=== PATIENT | male | born 1965 | race Caucasian/White ===

== ENCOUNTER 2016-03-16 23:29 | Emergency (ER) | payer OTHER ==
[~2016-03-16] VITALS: Ht 185.4 cm; Wt 130.0 kg
[2016-03-17 00:33] LABS: ADD MIUA? YES; BILIRUBIN NEGATIVE; BLOOD SMALL; COLOR YELLOW ((YELLOW)); GLUCOSE (STRIP) NEGATIVE; KETONES NEGATIVE; LEUKOCYTES NEGATIVE; NITRITE NEGATIVE; PH, URINE 6.5 (5-8); PROTEIN (STRIP) NEGATIVE; SPECIFIC GRAVITY 1.008 (1.000-1.030); UROBILINOGEN 0.2 MG/DL (0.2-1.0)
[2016-03-17 00:38] LABS: HEMATOCRIT 46.1 % (38.0-50.0); MCH 30.9 PG (29.0-34.0); MCHC 35.1 G/DL (30.0-36.0); MCV 87.8 FL (86-99); PLATELET COUNT 356 K/uL (156-360); RBC DIS.WIDTH-CV 13.2 % (11.8-14.6); RBC DIS.WIDTH-SD 42.1 % (39-53); RED BLOOD COUNT 5.25 M/uL (4.00-5.50); WHITE BLOOD COUNT 22.9 K/uL (4.1-10.2)
[2016-03-17 00:49] LABS: CHLORIDE 107 mEq/L (99-109); POTASSIUM 4.1 mEq/L (3.7-5.4); SODIUM 137 mEq/L (136-147)
[2016-03-17 00:52] LABS: GLUCOSE 120 mg/dL (70-99)
[2016-03-17 00:53] LABS: ANION GAP 12 MEQ/L (2-14)
[2016-03-17 00:54] LABS: TOTAL BILIRUBIN 0.6 mg/dL (0.0-1.0)
[2016-03-17 00:55] LABS: ALKALINE PHOSPHATASE 91 IU/L (3-129); GFR ESTIMATE (CALCULATED) 57 mL/min/
[2016-03-17 00:56] LABS: UREA NITROGEN (BUN) 13 mg/dL (9-23)
[2016-03-17 01:26] LABS: BACTERIA RARE; CASTS NONE SEEN /LPF; CRYSTALS NONE SEEN; EPITHELIAL CELLS NONE SEEN; MUCUS NONE SEEN; RED BLOOD CELLS 0-5 /HPF (0-5); UCUL ADDED? NO; WHITE BLOOD CELLS 0-5 /HPF (0-5)
[2016-03-17] MEDS ORDERED: PERCOCET 5/31 TABLET PO (01:30)
[2016-03-17] MEDS ORDERED: FLOMAX0.4 MG PO (01:30)
[2016-03-17] MEDS ORDERED: ZOFRAN ODT4 MG PO (01:30)
[2016-03-17] MEDS ORDERED: CIPRO500 MG PO (01:30)
[2016-03-17 01:40] VITALS: BP 122/85
[2016-03-17 03:05] LABS: EOSINOPHIL (%) 0.2 % (0-5); EOSINOPHIL COUNT 0.1 K/uL (0-0.3); IMMATURE GRANULOCYTE (%) 0.3 % (0.0-0.7); IMMATURE GRANULOCYTE COUNT 0.7 K/uL; LYMPHOCYTE COUNT 2.5 K/uL (1.0-2.8); MONOCYTE (%) 10.1 % (3-12); MONOCYTE COUNT 2.4 K/uL (0-0.8); NEUTROPHIL (%) 78.6 % (45-76); NEUTROPHIL COUNT 18.5 K/uL (1.8-6.4)
[2016-03-17 03:06] LABS: HEMATOLOGY COMMENT 1 SMEAR COMPATIBLE; USER ID DCS
== END 2016-03-17 01:42 | disposition home or self-care (01) ==
LOC: EME 23:29
PROVIDERS: Physician Assistant
DX: N13.2 Hydronephrosis with renal and ureteral calculous obstruction (principal); R31.9 Hematuria, unspecified; D72.829 Elevated white blood cell count, unspecified; R11.2 Nausea with vomiting, unspecified; F17.200 Nicotine dependence, unspecified, uncomplicated
CPT/HCPCS: 74176; 80053; 81003; 85025; 85027; 99281; 99284